=== PATIENT | male | born 2000 | race Caucasian/White ===

== ENCOUNTER 2020-03-23 16:09 | Emergency (ER) | payer BC ==
[~2020-03-23] VITALS: Ht 177.8 cm; Wt 75.0 kg
[2020-03-23] MEDS ORDERED: METH18TA PO (16:16)
[2020-03-23 16:20] VITALS: BP 134/76
[2020-03-23 20:30] LABS: COVID AG,FIA SOURCE NASOPHARYNGEAL
== END 2020-03-23 22:09 | disposition home or self-care (01) ==
LOC: EMS 16:13
DX: Z20.828 Contact with and (suspected) exposure to other viral communicable diseases (principal); J45.909 Unspecified asthma, uncomplicated; F12.90 Cannabis use, unspecified, uncomplicated
CPT/HCPCS: 87426; 99283; U0003

== ENCOUNTER 2020-04-01 17:34 | Emergency (ER) | payer BC ==
[~2020-04-01] VITALS: Ht 180.3 cm; Wt 90.9 kg
[~2020-04-01 17:34] MED LIST: METH18TA PO
[2020-04-01 17:44] VITALS: BP 141/98
== END 2020-04-01 18:08 | disposition home or self-care (01) ==
LOC: EMS 17:34
DX: R03.0 Elevated blood-pressure reading, without diagnosis of hypertension (principal); J45.909 Unspecified asthma, uncomplicated; F12.90 Cannabis use, unspecified, uncomplicated; Z20.828 Contact with and (suspected) exposure to other viral communicable diseases
CPT/HCPCS: 99283; U0003